=== PATIENT | male | born 1960 | race Caucasian/White ===

== ENCOUNTER 2020-11-15 01:14 | Inpatient (IN) | payer MEDICAID, SELFPAY ==
--- NOTE | 2020-11-14 23:01 | NUR.NOTE ---
Nursing Note: Report taken at this time. Tamia Velásquez RN from [facility] states she will call again when pt leaves with ems.
[2020-11-15] VITALS (52 sets, daily range): BP systolic 69–116; BP diastolic 32–85; PULSE 71–143; RESP 13–29; TEMP 35.9–36.7; O2SAT 91–98
[2020-11-15] MEDS: Lactated Ringers 1,000 ML 250 ML IV (01:30)
--- NOTE | 2020-11-15 02:24 | W.PM.HP.N ---
Date of service: 11/15/20 Time of Service: 02:24 Assessment and Plan Assessment and plan (1) Diabetic hyperosmolar non-ketotic state: Status: Acute Assessment and plan: Discontinue insulin at this point as his blood sugars have normalized but continue aggressive IV fluid hydration. Monitor blood sugars and frequent electrolytes and BUN/creatinine (2) Complicated UTI (urinary tract infection): Status: Acute Assessment and plan: Continue Rocephin 1 g IV daily and obtain urine and blood culture results. (3) Quadriplegia and quadriparesis: Status: Acute (4) Decubitus skin ulcer: Status: Acute Assessment and plan: Patient has multiple skin ulcers that are in various stages of healing. We will ask wound care nurse for consultation regarding all of his wounds. History of Present Illness History of Present Illness Chief Complaint: Elevated blood sugars Narrative: 59-year-old male with a history of multiple medical problems including quadriplegia with quadriparesis, type 2 diabetes mellitus not currently on treatment, chronic anemia, restless leg syndrome, insomnia, syringomyelia and syringobulbia, GERD, neurogenic bladder, long-term use of opiate for pain control who presents to the emergency department because of elevated fingerstick blood sugar. Patient has visiting nurse that comes once a week for his wound care and happened to check a fingerstick blood sugar and was reading high on the machine. Patient was referred to the emergency department for further evaluation. He states he has been in his usual state of health with no fever chills nausea or vomiting or diarrhea. Appetites been good. He states he has had increased thirst over the last week and drinking a lot of sodas. Patient is not currently vaccinated against Covid but has had no fever or chills or Covid exposure. He reportedly was tested at [facility] emergency room and was negative for COVID-19. Patient states that he was diagnosed with diabetes mellitus was found to have decubitus ulcer infection about a year ago and had been on Metformin until several months ago. Patient's primary care provider is Jorge L Qureshi however the patient was seen in the emergency department by Dr. Kyra Miles. He was found to have an elevated lab drawn glucose of 653 and an elevated BUN at 35 with a normal creatinine 1.0. Serum sodium was critically low at 125 but corrects to a level of 138 based on his elevated glucose. Urinalysis is abnormal with cloudy yellow urine, specific gravity 1.010, pH 7.0, moderate leukocyte esterase, negative nitrites, 4+ glucose and negative for ketones, negative for protein and greater than 100 white cells per high-powered field with many bacteria and no epithelial cells. This was taken from an indwelling Coronel catheter. Serum ketone level was obtained and found to be within normal limits at 0.4 CBC demonstrated anemia with microcytosis. Hemoglobin 9.2 g hematocrit 29% MCV of 75 with an RDW of 17 and platelet count of 3 and 71,000. His white cell count was normal at 8900. Patient was given 2 L of normal saline and was started on insulin drip at 7.5 units an hour. I received a call from Dr. Miles to accept the patient in transfer as they had no beds at [facility] in [facility] and they did already called [facility] in [place] and [facility] in [facility] and neither of those tertiary care centers had bed availability. Review of Systems Constitutional Constitutional: Denies chills and Denies fever(s) Eyes Eyes: Reports system reviewed and no additional complaints, except as documented ENT Ears, Nose, Mouth, and Throat: Reports system reviewed and no additional complaints, except as documented Cardiovascular Cardiovascular: Reports system reviewed and no additional complaints, except as documented Respiratory Respiratory: Reports system reviewed and no additional complaints, except as documented Gastrointestinal Gastrointestinal: Reports system reviewed and no additional complaints, except as documented Genitourinary Genitourinary: Reports system reviewed and no additional complaints, except as documented Musculoskeletal Musculoskeletal: Reports system reviewed and no additional complaints, except as documented Integumentary/Breasts Skin/Breast: Reports skin ulcer (Multiple skin ulcers in various stages of healing over his ankles and feet) Neurologic Neurologic: Reports sensory deficit (Patient is insensate over his arms and legs from his abdomen to waist) Endocrine Endocrine: Reports polydipsia and Reports polyuria [facility] Medical History (Updated 11/15/20 @ 03:55 by Gonzales Carey) Anemia Chronic rhinitis Diabetes mellitus type 2, controlled, without complications GERD (gastroesophageal reflux disease) Insomnia custodial current use of opiate analgesic Neurogenic bladder Obesity Pressure ulcer of sacrum Quadriplegia and quadriparesis Restless legs Syringomyelia and syringobulbia Surgical History (Updated 11/15/20 @ 03:26 by Gonzales Carey) History of drainage of abscess (~10/18/19) Necrotic decubitus ulcer of sacrum stage IV, necrotic decubitus ulcer of left posterior thigh/gluteal crease (ischial) stage IV S/P colostomy (~10/04/19) Stage IV sacral decubitus ulcers, quadriplegia Status post debridement (~08/27/20) Bilateral ingrown toenails, chronic decubitus pressure ischial and sacral ulcer stage III, crease stage IV, necrotic decubitus ulcer right posterior thigh/gluteal crease stage IV Status post debridement (~10/11/19) Necrotic decubitus ulcer of sacrum stage IV, necrotic decubitus ulcer of left posterior thigh/gluteal crease-stage IV, necrotic decubitus ulcer right posterior thigh/gluteal crease-stage IV Social History Smoking risk assessment performed?: No Meds Allergies and Home Medications Allergies Allergy/AdvReac Type Severity Reaction Status Date / Time sulfamethoxazole Allergy Severe facial Verified 11/15/20 02:45 [From Bactrim] swelling trimethoprim [From Bactrim] Allergy Severe facial Verified 11/15/20 02:45 swelling lactose Allergy Intermediate nausea and Verified 11/15/20 02:47 vomiting levofloxacin Allergy Intermediate Hives Verified 11/15/20 02:47 Home Medications Medication Instructions Recorded Confirmed Type acetaminophen 1,000 mg PO Q6H PRN 11/15/20 11/15/20 History calcium carbonate [Tums Calcium 2 tab PO TID 11/15/20 11/15/20 History for Life Bone] cholecalciferol (vitamin D3) 25 mcg PO DAILY 11/15/20 11/15/20 History docusate sodium [Colace] 200 mg PO DAILY PRN 11/15/20 11/15/20 History fentanyl 1 patch TRANSDERMAL Q72H 11/15/20 11/15/20 History ferrous sulfate 325 mg PO BID 11/15/20 11/15/20 History fluconazole 300 mg PO QWEEK 11/15/20 11/15/20 History fluticasone propionate 2 spray INTRANASAL DAILY 11/15/20 11/15/20 History food supplemt, lactose-reduced ml 11/15/20 History [Ensure High Protein] furosemide 20 mg PO BID 11/15/20 11/15/20 History gabapentin 300 mg PO TID 11/15/20 11/15/20 History ibuprofen [Ibumed-600] 600 mg PO Q6H PRN 11/15/20 11/15/20 History lorazepam 0.5 mg PO HS 11/15/20 11/15/20 History magnesium oxide 400 mg PO BID 11/15/20 11/15/20 History multivitamin [TAB A ANDREW] 1 tab PO DAILY 11/15/20 11/15/20 History naloxone [Narcan] 1 spray INTRANASAL PRN PRN 11/15/20 11/15/20 History nystatin [Nystop] 1 applic TOPICAL BID 11/15/20 11/15/20 History ondansetron 8 mg TRANSLINGUAL Q8H PRN 11/15/20 11/15/20 History oxycodone-acetaminophen 2 tab PO TID PRN 11/15/20 11/15/20 History pantoprazole 40 mg PO DAILY 11/15/20 11/15/20 History polyethylene glycol 3350 [Miralax] 17 g PO DAILY 11/15/20 11/15/20 History pramipexole 0.25 mg PO HS 11/15/20 11/15/20 History pramipexole 0.5 mg PO HS 11/15/20 11/15/20 History sennosides 34.4 mg PO DAILY PRN 11/15/20 11/15/20 History Exam Const General: cooperative and ill appearing Nutritional Appearance: overweight Orientation: alert, awake and oriented x3 HENCT Head: normal to inspection, no palpable skull fracture and normocephalic Ears: hearing grossly normal bilaterally General nose exam: external nose normal Face and sinus: normal facial exam Mouth: oral mucosa abnormal other (Dry) Teeth and gingiva: poor dentition Eyes General: appearance normal, both eyes and all related structures Visual Ceballos: normal visual ceballos by confrontation Alignment and Position: alignment normal Periorbital: periorbital findings normal Eyelids: eyelids normal Conjunctivae: conjunctivae normal Sclera: sclerae normal Cornea: corneas normal Pupils: PERRL EOM: EOM intact bilaterally Neck Neck: normal visual inspection, full ROM, no lymphadenopathy, no meningeal signs, trachea midline and supple Thyroid: thyroid normal Carotids: normal carotid upstroke Lymphatic: no lymphadenopathy noted Resp Effort & Inspection: normal respiratory effort and able to speak in complete sentences Auscultation: clear to auscultation bilaterally Cardio Jugular venous pressure: no JVD Palpation: normal PMI Rate: regular rate Rhythm: regular rhythm Heart Sounds: S1 normal, S2 normal and normal, physiologic split S2 Pulses: posterior tibial pulses present bilaterally diminished and dorsalis pedis present bilaterally diminished GI Inspection: non-distended, scar and other (Colostomy in right lower quadrant with light brown stool, pink stoma) Palpation: soft and no hepatosplenomegaly Percussion: normal to percussion Auscultation: normal bowel sounds Male General Exam: Yes normal external exam Penis: normal penis and other (Indwelling Coronel catheter) Back/Spine/Pelvis Back: no CVA tenderness Cervical Spine: normal cervical lordosis Thoracic/Lumbar Spine: scoliosis Skin Wounds: wounds noted (Both ankles and both heels have Mepilex covering his wounds) Neuro General: patient alert, patient awake, patient oriented x3 and absent sensation to monofilament Cognition: normal cognition Speech: speech normal Motor: muscle tone abnormal and strength abnormal bilateral lower extremity Results Labs Result diagrams: 11/15/20 05:35 11/15/20 05:35
[2020-11-15 03:45] LABS: BE (Venous) 6 mmol/L (-2-3); HCO3 (Venous) 31 mmol/L (23-28); O2 Sat (Venous) 71 %; TCO2 (Venous) 30 mmol/L (24-29); pCO2 (Venous) 52 mmHg (41-51); pH (Venous) 7.38 (7.31-7.41); pO2 (Venous) 37 mmHg
[2020-11-15 03:55] LABS: Anion Gap 2.7 mmol/L (3-11); BUN 29 mg/dL (7-18); CO2 31.3 mmol/L (21.0-32.0); CREATININE 0.8 mg/dL (0.70-1.30); Calcium 8.5 mg/dL (8.5-10.1); Chloride 100 mmol/L (98-107); Glucose 153 mg/dL (74-106); Potassium 4.1 mmol/L (3.5-5.1); Sodium 134 mmol/L (136-145)
[2020-11-15] MEDS: cefTRIAXone 1,000 MG in Normal Saline 50 ML 100 MG IVPB (04:06)
[2020-11-15] MEDS: Normal Saline 500 ML IV (04:40)
[2020-11-15 07:04] LABS: Lactate 1.4 mmol/L (0.6-1.4)
[2020-11-15 07:11] LABS: Bilirubin Negative (Negative); Blood Small (Negative); Clarity Cloudy (Clear); Glucose Negative (Negative); Ketones Negative (Negative); Leukocyte Esterase Moderate (Negative); Nitrite Positive (Negative); Specific Gravity 1.015 (1.005-1.025); Urobilinogen 0.2 EU/dL (Up TO 0.2); pH 6.5 (5-8)
[2020-11-15 07:11] LABS: Abs Immature Grans 0.07 10^3/uL (0.0-0.06); Absolute Basophil Count 0.04 10^3/uL (0.0-0.2); Absolute Eosinophil Count 0.41 10^3/uL (0.0-0.7); Absolute Lymphocyte Count 1.98 10^3/uL (1.2-3.4); Absolute Monocyte Count 0.45 10^3/uL (0.1-0.8); Basophils % 0.3; Eosinophils % 3.2; HCT 23.1 % (40.0-50.0); HGB 7.1 g/dL (13.5-17.5); Immature Grans % 0.5; Lymphocytes % 15.5; MCH 23.2 pg (27.0-33.0); MCHC 30.7 % (32.0-36.0); MCV 75.5 fL (80-95); Monocytes % 3.5; Nucleated RBC 0 %; Platelet Count 338 10^3/uL (130-400); RBC 3.06 10^6/uL (4.36-5.78); RDW 16.5 % (11.8-14.1); RDW-SD 45.1 fL; WBC 12.77 10^3/uL (4.4-10.8)
[2020-11-15 07:13] LABS: Absolute Neutrophil Count 9.83 10^3/uL (1.2-6.7)
[2020-11-15 07:20] LABS: Bacteria Many HPF (Negative); C & S Indicated? Yes; Casts Negative LPF (Negative); Crystals Negative HPF (Negative); Epithelial Cells Negative HPF (Negative); Mucus Negative (Negative); WBC >50 HPF (0-5)
[2020-11-15] MEDS: Normal Saline 500 ML 1000 ML IV (07:20)
[2020-11-15 07:34] LABS: Hemoglobin A1C 9.9 % (<5.7)
[2020-11-15 07:35] LABS: Anisocytosis 1+; Diff Comment RBC Morph Reviewed
[2020-11-15 07:38] LABS: ALT 7 U/L (16-63); AST 9 U/L (15-37); Albumin 1.6 g/dL (3.4-5.0); Alkaline Phosphatase 126 U/L (46-116); BUN 24 mg/dL (7-18); Bilirubin, Total 0.1 mg/dL (0.2-1.0); CREATININE 0.7 mg/dL (0.70-1.30); Calcium 8.2 mg/dL (8.5-10.1); Chloride 102 mmol/L (98-107); Glucose 154 mg/dL (74-106); Potassium 4.1 mmol/L (3.5-5.1); Sodium 135 mmol/L (136-145); TSH 2.42 uIU/mL (0.36-3.74); Total Protein 6.9 g/dL (6.4-8.2)
[2020-11-15 07:51] LABS: Procalcitonin 0.2 ng/mL
[2020-11-15] MEDS: Enoxaparin 40 MG/0.4 ML SYR SC (08:52)
[2020-11-15] MEDS: Insulin Aspart 300 UNITS/3 ML PEN SC ×6 (08:53→17:40)
[2020-11-15] MEDS: Gabapentin 300 MG CAP PO ×3 (08:59→20:02)
[2020-11-15] MEDS: Nystatin POWDER 60 GM JAR TP ×2 (08:59→21:24)
[2020-11-15] MEDS: Multivitamin TAB 1 TAB PO (08:59)
[2020-11-15] MEDS: Furosemide 20 MG TAB PO ×2 (08:59→16:38)
[2020-11-15] MEDS: Magnesium Oxide 400 MG TAB PO ×2 (08:59→20:02)
[2020-11-15] MEDS: Pantoprazole 40 MG TABCR PO (09:00)
[2020-11-15] MEDS: Ferrous Sulfate 325 MG TAB PO ×2 (09:00→20:00)
[2020-11-15] MEDS: Fluticasone NASAL SPRAY 16 GM BTL NS (09:00)
[2020-11-15] MEDS: Cholecalciferol (Vitamin D3) 1,000 UNIT TAB 1000 UNITS PO (09:00)
[2020-11-15] MEDS: Polyethylene Glycol 3350 17 GM PACKET PO (09:01)
[2020-11-15 11:12] LABS: Magnesium 1.5 mg/dL (1.8-2.4)
--- NOTE | 2020-11-15 11:17 | W.SURGCON ---
Assessment and Plan Assessment and plan (1) Decubitus skin ulcer: Status: Acute Assessment and plan: -Continue aggressive local wound care per wound care notes, keep areas as clean and dry as possible -Wound recommend Santyl over distal sacrum and any areas with visible slough or necrotic tissue -Offloading q2 hours and air mattress if available -Nutritionally optimize to aid in wound healing Qualifiers: Pressure injury location: sacral region Pressure injury stage: stage 4 Qualified Code(s): L89.154 - Pressure ulcer of sacral region, stage 4 (2) Complicated UTI (urinary tract infection): Status: Acute (3) Diabetic hyperosmolar non-ketotic state: Status: Acute (4) S/P colostomy: Status: Acute (5) senior care current use of opiate analgesic: Status: Acute (6) Neurogenic bladder: Status: Acute (7) Quadriplegia and quadriparesis: Status: Acute (8) Syringomyelia and syringobulbia: Status: Acute (9) Anemia: Status: Chronic Qualifiers: Anemia type: unspecified type Qualified Code(s): D64.9 - Anemia, unspecified History of Present Illness Narrative: Patient is a 59 year old male with multiple medical comorbidities including HHNS for which he was transferred here from [facility] overnight who has chronic wounds as a result of his quadriplegia. The wounds have been cared for several times per week by [facility] services. He has undergone multiple debridements in the past at [facility] and would like to avoid further surgery if possible. His wounds appear to be macerated from moisture likely exacerbated by the use of saline soaked dressings. He uses an air mattress while at home. He denies any fever, chills, nausea or vomiting and claims his symptoms of dizziness and malaise have resolved.He admits to pounding sodas which did not actually help with his polydipsia and he stopped having his blood glucose checked since it was always in the low 100's. He understands the significant risks associated with wound infections in patient's with diabetes, which is a new diagnosis for him. He was seen by wound care here who have nicely documented pictures and measurements of all of the patient's wounds. As a result of his wounds I was asked to see the patient in consultation. Consults Consult date: 11/15/20 Requesting physician: Swapnil Bender Review of Systems Constitutional Constitutional: Reports as per HPI, Reports fatigue, Denies fever(s) and Reports malaise Eyes Eyes: Reports blurry vision ENT Ears, Nose, Mouth, and Throat: Reports dizziness Cardiovascular Cardiovascular: Denies dyspnea Respiratory Respiratory: Denies dyspnea and Denies wheezing Gastrointestinal Gastrointestinal: Denies abdominal pain, Denies diarrhea, Denies nausea and Denies vomiting Integumentary/Breasts Skin/Breast: Reports wounds Neurologic Neurologic: Reports dizziness Endocrine Endocrine: Reports fatigue Allergic/Immunologic Allergic/Immunologic: Denies wheezing [facility] Medical History (Updated 11/15/20 @ 14:10 by Stephanie Gordon DO) Anemia Chronic rhinitis Diabetes mellitus type 2, controlled, without complications GERD (gastroesophageal reflux disease) Insomnia senior care current use of opiate analgesic Neurogenic bladder Obesity Pressure ulcer of sacrum Quadriplegia and quadriparesis Restless legs Syringomyelia and syringobulbia Surgical History (Updated 11/15/20 @ 03:26 by Gonzales Carey) History of drainage of abscess (~10/18/19) Necrotic decubitus ulcer of sacrum stage IV, necrotic decubitus ulcer of left posterior thigh/gluteal crease (ischial) stage IV S/P colostomy (~10/04/19) Stage IV sacral decubitus ulcers, quadriplegia Status post debridement (~08/27/20) Bilateral ingrown toenails, chronic decubitus pressure ischial and sacral ulcer stage III, crease stage IV, necrotic decubitus ulcer right posterior thigh/gluteal crease stage IV Status post debridement (~10/11/19) Necrotic decubitus ulcer of sacrum stage IV, necrotic decubitus ulcer of left posterior thigh/gluteal crease-stage IV, necrotic decubitus ulcer right posterior thigh/gluteal crease-stage IV Social History Smoking risk assessment performed?: No Exam Const General: cooperative and no acute distress HENMT Teeth and gingiva: caries and poor dentition Resp Effort & Inspection: normal respiratory effort and no audible wheezes Cardio Rate: regular rate Rhythm: regular rhythm GI Inspection: other (colostomy) Palpation: soft and nontender Scrotum: ulceration Other: chronic gray Skin General skin exam: erythema Wounds: wounds noted (multiple areas of decubitus ulcers with significant MASD) Neuro General: patient alert, patient awake, patient oriented x3, tone abnormal, does not move all extremities and other (quadriplegia with upper extremity conractures) Extrem Right lower extremity: edema Details: 1+ Left lower extremity: edema Details: 1+ Results Last Vital Signs Temp 97.0 F L 11/15/20 05:00 Pulse 91 H 11/15/20 05:01 Resp 20 11/15/20 05:01 BP 87/52 L 11/15/20 05:01 Pulse Ox 98 11/15/20 05:01 Labs Result diagrams: 11/15/20 06:50 11/15/20 06:50 Labs: Laboratory Results - last 24 hr 11/15/20 11/15/20 11/15/20 03:35 03:35 06:30 WBC RBC Hgb Hct MCV MCH MCHC RDW Plt Count MPV Immature Gran % Neutrophils % Lymphocytes % Monocytes % Eosinophils % Basophils % Nucleated RBC % Absolute Neutrophils Absolute Lymphocytes Absolute Monocytes Absolute Eosinophils Absolute Basophils RBC Morphology Anisocytosis VBG pH 7.38 VBG pCO2 52 H VBG pO2 37 VBG HCO3 31 H VBG Total CO2 30 H VBG O2 Saturation 71 VBG Base Excess 6 H VBG Lactate Sodium 134 L Potassium 4.1 Chloride 100 Carbon Dioxide 31.3 Anion Gap 2.7 L BUN 29 H Creatinine 0.8 Estimated GFR/1.73 m2 >= 60.00 Glucose 153 H Hemoglobin A1c Calcium 8.5 Total Bilirubin AST ALT Alkaline Phosphatase C-Reactive Protein Total Protein Albumin Procalcitonin TSH Urine Color Yellow Urine Clarity Cloudy Urine pH 6.5 Ur Specific [place] 1.015 Urine Protein 30 H Urine Ketones Negative Urine Blood Small H Urine Nitrite Positive H Urine Bilirubin Negative Urine Urobilinogen 0.2 Ur Leukocyte Esterase Moderate H Urine RBC Urine WBC >50 H Ur Epithelial Cells Negative Urine Crystals Negative Urine Bacteria Many Urine Casts Negative Urine Mucus Negative Ur Culture Indicated? Yes Urine Glucose Negative 11/15/20 11/15/20 11/15/20 06:50 06:50 06:50 WBC 12.77 H RBC 3.06 L Hgb 7.1 L Hct 23.1 L MCV 75.5 L MCH 23.2 L MCHC 30.7 L RDW 16.5 H Plt Count 338 MPV 9.0 Immature Gran % 0.5 Neutrophils % 77.0 Lymphocytes % 15.5 Monocytes % 3.5 Eosinophils % 3.2 Basophils % 0.3 Nucleated RBC % 0 Absolute Neutrophils 9.83 H Absolute Lymphocytes 1.98 Absolute Monocytes 0.45 Absolute Eosinophils 0.41 Absolute Basophils 0.04 RBC Morphology See Below Anisocytosis 1+ VBG pH VBG pCO2 VBG pO2 VBG HCO3 VBG Total CO2 VBG O2 Saturation VBG Base Excess VBG Lactate Sodium 135 L Potassium 4.1 Chloride 102 Carbon Dioxide 28.0 Anion Gap 5.0 BUN 24 H Creatinine 0.7 Estimated GFR/1.73 m2 >= 60.00 Glucose 154 H Hemoglobin A1c 9.9 H Calcium 8.2 L Total Bilirubin 0.1 L AST 9 L ALT 7 L Alkaline Phosphatase 126 H C-Reactive Protein 5.70 H Total Protein 6.9 Albumin 1.6 L Procalcitonin TSH 2.42 Urine Color Urine Clarity Urine pH Ur Specific [place] Urine Protein Urine Ketones Urine Blood Urine Nitrite Urine Bilirubin Urine Urobilinogen Ur Leukocyte Esterase Urine RBC Urine WBC Ur Epithelial Cells Urine Crystals Urine Bacteria Urine Casts Urine Mucus Ur Culture Indicated? Urine Glucose 11/15/20 06:50 WBC RBC Hgb Hct MCV MCH MCHC RDW Plt Count MPV Immature Gran % Neutrophils % Lymphocytes % Monocytes % Eosinophils % Basophils % Nucleated RBC % Absolute Neutrophils Absolute Lymphocytes Absolute Monocytes Absolute Eosinophils Absolute Basophils RBC Morphology Anisocytosis VBG pH VBG pCO2 VBG pO2 VBG HCO3 VBG Total CO2 VBG O2 Saturation VBG Base Excess VBG Lactate 1.4 Sodium Potassium Chloride Carbon Dioxide Anion Gap BUN Creatinine Estimated GFR/1.73 m2 Glucose Hemoglobin A1c Calcium Total Bilirubin AST ALT Alkaline Phosphatase C-Reactive Protein Total Protein Albumin Procalcitonin 0.2 TSH Urine Color Urine Clarity Urine pH Ur Specific [place] Urine Protein Urine Ketones Urine Blood Urine Nitrite Urine Bilirubin Urine Urobilinogen Ur Leukocyte Esterase Urine RBC Urine WBC Ur Epithelial Cells Urine Crystals Urine Bacteria Urine Casts Urine Mucus Ur Culture Indicated? Urine Glucose
[2020-11-15] MEDS: Calcium Carbonate 1.5 GM TAB 3 GM PO ×3 (11:30→20:01)
--- NOTE | 2020-11-15 11:53 | WOUNDCONS_ITS ---
- If Service Date Differs Date of service: 11/15/20 Time of Service: 09:50 Wound Initial Evaluation Narrative: Pt had consult placed for multiple open areas/ wounds. Pt is alert and oriented x 3. Spoke with Danielle at [facility] who stated that he has been seen for his wounds through home health since 2018 and has a caregiver who comes in along with nursing 5-7 days/ week, wound orders as stated from home health are to pack open wounds with exufiber or saline soaked kerlix, cover with ABD and tape, change daily and PRN for outer covering, also noted in report that pt declines to follow repositioning guidelines. Pt came in 11/14/20 as a transfer from [facility] in [place] for COUNTS INCLUDE 234 BEDS AT THE [facility] (see H and P for details). Pt had SBP in 70-80's on the night of 11/14- morning 11/15 but now has a blood pressure around 110's/70's. Pt afebrile at time of assessment. D/t contractures, pt unable to sign and gives verbal consent for photos and wound assessment. Wound on left heel appears to be DTI measuring 2.5 cm x 2.5 cm x 0. Pt states he has had this injury awhile. No open areas noted. Recommend mepilex over area for protection, change q 3 days and PRN and offloading heel. Right lateral malleolus open area pt states is from pressure. Open area measures 0.3 cm x 0.3 cm x 0.1 cm. Recommend cleansing area with ns, pat dry, apply mepilex q 3 days and PRN and offloading the area. Right abdominal fold open areas (2 areas measured as one) measures 1 cm x 1.5 cm x 0.2 cm. Area could be a moisture associated injury. Recommend cleaning area, pat dry, apply triple cream (A and D, ZInc and clotrimazole in equal parts) TID and PRN. Monitor for s/sx of infection and report to MD. Mary area and groin has areas of redness with irritation consistant with moisture associated injury with fungal component. Recommend cleaning area, pat dry, apply triple cream TID and PRN. Monitor for s/sx of infection and report to MD. Scrotum has open area measuring 3.5 x 1 x 0.2 ?etiology. Scrotum itself is reddened with other areas of potential breakdown noted. Right ischial tuberosity- ? etiology, probable pressure area. Reddened area measures 12 cm x 9.5 cm x 0.1 cm with area of maceration near concave area noted. Redness is blanchable, no induration noted. Sacral area open wound noted to be a stage 4 in previous documentation. Currently wound measures 6.5 cm x 5 cm x 1.8 cm. Tunnel noted at 8 o'clock measuring 1.1 cm and undermining noted from 3-5 cm measuring 1.5 cm at deepest part. Slit noted at 6 o'clock measuring 3.5 cm. Attempted to measure depth of slit, but unable d/t pt discomfort and pt request to stop. Dressing removed had moderate amount of purluent drainage Recommend cleanse with ns, pat dry, apply algisite to larger open area, apply layer of anasept gel to smaller slough covered area, cover with mepilex. Change daily and PRN. Left posterior thigh necrotic area measures 4 cm x 1 cm x 0.2 cm. Recommend cleansing wound with saline, pat dry, apply skin prep to periphery, anasept gel to base of wound and cover with mepilex. Change daily and PRN. General posterior buttocks/ thigh area- Appears to have MASD as well as significant edema. Clean area, pat dry, apply triple cream TID and PRN. See pictures below for wound appearences. notified and Dr. Bender in to see wounds. Spoke to patient and staff about need for offloading and repositioning and offloading boots. Pt has order to change catheter and hopefully catheter change will help with any leaking around site, although it is a chronic catheter.Pt would benefit from surgical consult and nutrition consult. - Wound Left heel Wound Length: 2.5 cm Wound Width: 2.5 cm Wound Depth: 0.1 cm Right lateral malleolus Wound Length: 0.3 cm Wound Width: 0.3 cm Wound Depth: 0.1 cm Right abd fold Wound Length: 1 cm Wound Width: 1.5 cm Wound Depth: 0.2 cm Scrotum Wound Length: 3.5 cm Wound Width: 1 cm Wound Depth: 0.2 cm Right ischial tuberosity Wound Length: 12 cm Wound Width: 9.5 cm Wound Depth: 0.1 cm Sacral area Wound Length: 6.5 cm Wound Width: 5 cm Wound Depth: 1.8 cm Left posterior thigh Wound Length: 4 cm Wound Width: 1 cm Wound Depth: 0.2 cm - Recomendation Recomendation:: Left heel- Skin prep around area, cover with mepilex, change q 3 days and PRN Right lateral malleolus- Cleanse with ns, pat dry, apply mepilex. Change q 3 days an PRN Right abd fold and mary area/ groin- Cleanse area, pat dry. Apply triple cream (A and D, clotrimazole and zinc) to area TID and PRN Scrotum- Cleanse, pat dry and apply triple cream TID and PRN. R ischial tuberosity- Cleanse area, pat dry, apply triple cream TID and PRN. Sacrum- Cleanse with ns, pat dry, apply algisite and cover with mepilex. Change daily and PRN. For smaller slough area adjacent to larger area, cleanse with ns, apt dry, apply anasept gel, cover with mepilex- follow surgical recommendations after consult. Left posterior thigh- CLeanse with ns, pat dry, apply anasept gel. Cover with mepilex. Follow Surgical recommendations after consult. General MASD on posterior buttocks/ thighs- cleanse, pat dry, apply triple cream TID and PRN. Recommend :Surgical consult for slough/ necrotic areas on posterior. Nutrition consult for wound healing. Arjo bed for pt if here longer than three days. Turn q 2 and PRN as pt is high risk for further pressure injuries. Offloading boots. Due to chronicity of wounds r/o osteomyelitis.
--- NOTE | 2020-11-15 13:15 | PDOC.CMIN ---
- If Service Date Differs Date of service: 11/15/20 Time of Service: 13:16 Care Management Initial Assess REASON FOR HOSPITALIZATION:: Hyperosmolar Nonketotic Hyperglycemia PAST MEDICAL HISTORY/PAST SURGICAL HISTORY:: Medical History (Updated 11/15/20 @ 03:55 by Gonzales Carey). Anemia. Chronic rhinitis. Diabetes mellitus type 2, controlled, without complications. GERD (gastroesophageal reflux disease). Insomnia. 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 Neurogenic bladder. Obesity. Pressure ulcer of sacrum. Quadriplegia and quadriparesis. Restless legs. Syringomyelia and syringobulbia. Surgical History (Updated 11/15/20 @ 03:26 by Gonzales Carey). History of drainage of abscess (~10/18/19). Necrotic decubitus ulcer of sacrum stage IV, necrotic decubitus ulcer of left posterior thigh/gluteal crease (ischial) stage IV. S/P colostomy (~10/04/19). Stage IV sacral decubitus ulcers, quadriplegia. Status post debridement (~08/27/20). 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 Status post debridement (~10/11/19). Necrotic decubitus ulcer of sacrum stage IV, necrotic decubitus ulcer of left posterior thigh/gluteal crease-stage IV, necrotic decubitus ulcer right posterior thigh/gluteal crease-stage IV PREVIOUS FUNCTIONAL STATUS/SOCIAL/FAMILY SUPPORTS:: Jose lives alone in [place]. His brother Harvey from [place] has been staying with him prior to his admission. Jose's son and daughter in law are supportive and live nearby on the same parcel of land. Jose has a scooter at home and transfers with a mariela lift. He is home bound and transports via EMS when needed. He has [facility] SN[facility]PT services and receives daily care for a large sacral wound. CURRENT FUNCTIONAL STATUS:: Jose was laying in bed when CM met with him. He was pleasant and easily engaged in conversation. He shares that he is feeling better today. He has a phone in his room and reports that he is keeping his family updated and planning on calling his brother later today. ADVANCE DIRECTIVES:: None on file Has patient been provided with info about the portal/API?: Yes Did the patient sign up for the portal?: No CODE STATUS:: Full Code INSURANCE COVERAGE / FINANCIAL ISSUES:: Medicaid CURRENT HOME/COMMUNITY SERVICES/EQUIPMENT:: [facility]: SN/PT, [employer] (at home), has a scooter. PRIMARY CARE PHYSICIAN:: Dr. Guaman, [facility] POTENTIAL DISCHARGE NEEDS:: EMS transportation, SNF for wound care PATIENT/FAMILY EDUCATION NEEDS:: Review of discharge instructions and plan to follow up with community providers. ask me three. TRANSPORTATION:: Transportation is dependent on disposition: Home vs SNF for rehab via EMS PLAN:: Further evaluations needed to determine discharge plan. CM will continue to support discharge planning.
[2020-11-15] MEDS: Lactated Ringers 1,000 ML 50 ML IV (14:55)
[2020-11-15] MEDS: MAGNESIUM SULFATE 2 GM/50 ML BAG IVPB (14:56)
[2020-11-15] MEDS: Ibuprofen 600 MG TAB PO (20:01)
[2020-11-15] MEDS: Docusate Sodium 100 MG CAP PO (20:02)
[2020-11-15] MEDS: Insulin Glargine 300 UNITS/3 ML PEN 10 UNITS SC (21:20)
[2020-11-15] MEDS: Pramipexole 0.25 MG TAB PO (21:22)
[2020-11-15] MEDS: LORazepam 0.5 MG TAB PO (21:22)
[2020-11-15] MEDS: Pramipexole 0.5 MG TAB PO (21:22)
--- NOTE | 2020-11-15 22:24 | NUR.NOTE ---
Pt with indwelling catheter foreskin noted to be retracted unable to replace foreskin secondary to edema and irritation. Surgilube applied to glans.Nursing Note:
[2020-11-16] VITALS (81 sets, daily range): BP systolic 54–112; BP diastolic 25–71; PULSE 60–115; RESP 9–24; TEMP 35.5–37.5; O2SAT 84–98
[2020-11-16] MEDS: oxyCODONE 5 mg/Acetaminophen 325 mg TAB 2 TAB PO ×3 (00:08→20:38)
[2020-11-16] MEDS: Lactated Ringers 1,000 ML 50 ML IV ×3 (00:30→21:46)
[2020-11-16] MEDS: cefTRIAXone 1 GM/50 ML BAG IVPB (04:23)
[2020-11-16] MEDS: Lactated Ringers 500 ML 1000 ML IV (05:20)
--- NOTE | 2020-11-16 05:47 | NUR.NOTE ---
2347 on 11/15-Dr. Mullen in to assess gray. He thought that foreskin was able to be retracted and pt would not need any more ice to the site.
[2020-11-16 06:31] LABS: Lactate 0.8 mmol/L (0.6-1.4)
[2020-11-16 06:33] LABS: Abs Immature Grans 0.05 10^3/uL (0.0-0.06); Absolute Basophil Count 0.02 10^3/uL (0.0-0.2); Absolute Lymphocyte Count 2.34 10^3/uL (1.2-3.4); Absolute Neutrophil Count 5.15 10^3/uL (1.2-6.7); Basophils % 0.2; Eosinophils % 2.4; HCT 22.2 % (40.0-50.0); Immature Grans % 0.6; Lymphocytes % 28.3; MCH 23.9 pg (27.0-33.0); MCHC 31.1 % (32.0-36.0); MCV 76.8 fL (80-95); MPV 8.8 fL (8.0-11.0); Monocytes % 6.1; Neutrophils % 62.4; Nucleated RBC 0 %; Platelet Count 312 10^3/uL (130-400); RBC 2.89 10^6/uL (4.36-5.78); RDW-SD 47.4 fL; WBC 8.26 10^3/uL (4.4-10.8)
[2020-11-16 06:37] LABS: HGB 6.9 g/dL (13.5-17.5)
[2020-11-16 06:45] LABS: Anion Gap 2.6 mmol/L (3-11); BUN 18 mg/dL (7-18); CO2 32.4 mmol/L (21.0-32.0); CREATININE 0.9 mg/dL (0.70-1.30); Calcium 8.3 mg/dL (8.5-10.1); Chloride 102 mmol/L (98-107); Glucose 225 mg/dL (74-106); Potassium 4.1 mmol/L (3.5-5.1); Sodium 137 mmol/L (136-145)
--- NOTE | 2020-11-16 06:46 | PGE_ITS ---
Date of Service Date of service: 11/16/20 Time of Service: 06:47 Assessment and Plan Assessment and plan (1) Hypotension: Status: Acute Assessment and plan: Patient's blood pressure runs low chronically with SBP in 90s, but we are seeing lower numbers overnight. Obvious concern in the setting of sacral ulcer and elevated WBC and CRP is bacteremia and sepsis. Given this, I will dose with vancomycin to his ceftriaxone as we continue the assessment, add lactate to labs. That said, he is not septic clinically. I repeated BP with left arm that was positioned more in line with the heart, I did get in the 80s systolic. His urine output is excellent which reflects good perfusion. WBC just returned and is normal with normal differential He is also critically anemia, will give blood rather than another bolus after discussion with patient and consent. Case will be discussed with day hospitalist within the hour to prioritize ongoing assessment. (2) Anemia: Status: Chronic Assessment and plan: I am not sure of the etiology of his severe anemia, but he is now below 7 so will transfuse. The drop was minimal from 7.1 yesterday with hydration, and he is not reporting active bleed. His nutrutional status is poor so iron/b12/folate levels should be assessed. Likely iron deficient with microcytosis, he may benefit from IV iron. Qualifiers: Anemia type: unspecified type Qualified Code(s): D64.9 - Anemia, unspecified Subjective Subjective Interval history since last seen: ICU update: RN called 4am, blood pressures trending down to 79/36. He had responded to 500ml bolus of LR in the evening. This was repeated but blood pressures stayed i n 70s/40s. I assessed the patient. He denied fevers/chills. not dizzy, nauseous, SOB. He is hungry. No new pain. He feels fine. Exam Narrative Exam Narrative: A&O, NAD in bed on left side, BP cuff on right arm. No elevation JVP, neck supple. Lungs clear to ascultation, nl effort. CV: RRR, no murmur, gallups. EXT: Contracted, 2+ edema to lower legs. Objective Last Vital Signs Temp 36.2 C L 11/16/20 06:35 Pulse 89 11/16/20 04:41 Resp 18 11/16/20 05:00 BP 85/64 L 11/16/20 06:35 Pulse Ox 93 11/16/20 05:00 Laboratory Results - last 24 hr 11/15/20 11/15/20 11/15/20 06:30 06:50 06:50 WBC 12.77 H RBC 3.06 L Hgb 7.1 L Hct 23.1 L MCV 75.5 L MCH 23.2 L MCHC 30.7 L RDW 16.5 H Plt Count 338 MPV 9.0 Immature Gran % 0.5 Neutrophils % 77.0 Lymphocytes % 15.5 Monocytes % 3.5 Eosinophils % 3.2 Basophils % 0.3 Nucleated RBC % 0 Absolute Neutrophils 9.83 H Absolute Lymphocytes 1.98 Absolute Monocytes 0.45 Absolute Eosinophils 0.41 Absolute Basophils 0.04 RBC Morphology See Below Anisocytosis 1+ VBG Lactate Sodium 135 L Potassium 4.1 Chloride 102 Carbon Dioxide 28.0 Anion Gap 5.0 BUN 24 H Creatinine 0.7 Estimated GFR/1.73 m2 >= 60.00 Glucose 154 H Hemoglobin A1c Calcium 8.2 L Magnesium Total Bilirubin 0.1 L AST 9 L ALT 7 L Alkaline Phosphatase 126 H C-Reactive Protein 5.70 H Total Protein 6.9 Albumin 1.6 L Procalcitonin TSH 2.42 Urine Color Yellow Urine Clarity Cloudy Urine pH 6.5 Ur Specific [place] 1.015 Urine Protein 30 H Urine Ketones Negative Urine Blood Small H Urine Nitrite Positive H Urine Bilirubin Negative Urine Urobilinogen 0.2 Ur Leukocyte Esterase Moderate H Urine RBC Urine WBC >50 H Ur Epithelial Cells Negative Urine Crystals Negative Urine Bacteria Many Urine Casts Negative Urine Mucus Negative Ur Culture Indicated? Yes Urine Glucose Negative Crossmatch 11/15/20 11/15/20 11/15/20 06:50 06:50 06:50 WBC RBC Hgb Hct MCV MCH MCHC RDW Plt Count MPV Immature Gran % Neutrophils % Lymphocytes % Monocytes % Eosinophils % Basophils % Nucleated RBC % Absolute Neutrophils Absolute Lymphocytes Absolute Monocytes Absolute Eosinophils Absolute Basophils RBC Morphology Anisocytosis VBG Lactate 1.4 Sodium Potassium Chloride Carbon Dioxide Anion Gap BUN Creatinine Estimated GFR/1.73 m2 Glucose Hemoglobin A1c 9.9 H Calcium Magnesium 1.5 L Total Bilirubin AST ALT Alkaline Phosphatase C-Reactive Protein Total Protein Albumin Procalcitonin 0.2 TSH Urine Color Urine Clarity Urine pH Ur Specific [place] Urine Protein Urine Ketones Urine Blood Urine Nitrite Urine Bilirubin Urine Urobilinogen Ur Leukocyte Esterase Urine RBC Urine WBC Ur Epithelial Cells Urine Crystals Urine Bacteria Urine Casts Urine Mucus Ur Culture Indicated? Urine Glucose Crossmatch 11/16/20 11/16/20 11/16/20 06:15 06:15 06:40 WBC 8.26 D RBC 2.89 L Hgb 6.9 L* Hct 22.2 L MCV 76.8 L MCH 23.9 L MCHC 31.1 L RDW 17.0 H Plt Count 312 MPV 8.8 Immature Gran % 0.6 Neutrophils % 62.4 Lymphocytes % 28.3 Monocytes % 6.1 Eosinophils % 2.4 Basophils % 0.2 Nucleated RBC % 0 Absolute Neutrophils 5.15 Absolute Lymphocytes 2.34 Absolute Monocytes 0.50 Absolute Eosinophils 0.20 Absolute Basophils 0.02 RBC Morphology Anisocytosis VBG Lactate 0.8 Sodium Potassium Chloride Carbon Dioxide Anion Gap BUN Creatinine Estimated GFR/1.73 m2 Glucose Hemoglobin A1c Calcium Magnesium Total Bilirubin AST ALT Alkaline Phosphatase C-Reactive Protein Total Protein Albumin Procalcitonin TSH Urine Color Urine Clarity Urine pH Ur Specific [place] Urine Protein Urine Ketones Urine Blood Urine Nitrite Urine Bilirubin Urine Urobilinogen Ur Leukocyte Esterase Urine RBC Urine WBC Ur Epithelial Cells Urine Crystals Urine Bacteria Urine Casts Urine Mucus Ur Culture Indicated? Urine Glucose Crossmatch See Detail
[2020-11-16 06:48] LABS: Magnesium 1.8 mg/dL (1.8-2.4)
--- NOTE | 2020-11-16 07:16 | NUR.NOTE ---
0445-Dr. Mullen called about BP of 74/42. bolus of LR ordered. 0600-BP now 76/44 and 69/[address] Mullen called again and stated he would be coming in to assess pt. labs were drawn and when Dr. Mullen here to assess pt, lab called with a critical value for Hg of 6.9. Reported to Dr. Mullen who ordered type and cross and transfusion.
[2020-11-16 08:23] LABS: Iron 42 ug/dL (65-175); Total Iron Binding Capacity 146 ug/dL (250-450); Transferrin Sat 29 % (20-55)
[2020-11-16 08:25] LABS: Folate > 20.0 ng/mL (8.6-20.0); Vitamin B12 947 pg/mL (193-986)
[2020-11-16] MEDS: Enoxaparin 40 MG/0.4 ML SYR SC (08:40)
[2020-11-16] MEDS: Ferrous Sulfate 325 MG TAB PO ×2 (08:40→20:38)
[2020-11-16] MEDS: Pantoprazole 40 MG TABCR PO (08:40)
[2020-11-16] MEDS: Calcium Carbonate 1.5 GM TAB 3 GM PO ×3 (08:41→20:38)
[2020-11-16] MEDS: Gabapentin 300 MG CAP PO ×3 (08:41→20:38)
[2020-11-16] MEDS: Magnesium Oxide 400 MG TAB PO ×3 (08:41→20:42)
[2020-11-16] MEDS: Cholecalciferol (Vitamin D3) 1,000 UNIT TAB 1000 UNITS PO (08:41)
[2020-11-16] MEDS: Insulin Aspart 300 UNITS/3 ML PEN SC ×5 (08:42→18:06)
[2020-11-16] MEDS: Multivitamin TAB 1 TAB PO (08:42)
[2020-11-16] MEDS: Collagenase 30 GM TUBE TP (08:44)
[2020-11-16] MEDS: Polyethylene Glycol 3350 17 GM PACKET PO (08:46)
[2020-11-16] MEDS: Fluticasone NASAL SPRAY 16 GM BTL NS (08:46)
[2020-11-16] MEDS: Normal Saline Flush 10 ML SYR (08:47)
[2020-11-16] MEDS: VANCOMYCIN/WATER (PEG) 1.5 GM/300 ML BAG IV (08:48)
--- NOTE | 2020-11-16 11:24 | PHACLINREV_ITS ---
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 (Acute) Neurogenic bladder (Acute) Quadriplegia and quadriparesis (Acute) Syringomyelia and syringobulbia (Acute) sulfamethoxazole [From Bactrim] Allergy (Severe, Verified 11/15/20 02:45) facial swelling trimethoprim [From Bactrim] Allergy (Severe, Verified 11/15/20 02:45) facial swelling lactose Allergy (Intermediate, Verified 11/15/20 02:47) nausea and vomiting levofloxacin Allergy (Intermediate, Verified 11/15/20 02:47) Hives Resuscitation Status Full Code Height 5 ft 4 in Weight 78.6 kg - Renal Dosing Renal Dosing: BUN 18 mg/dL (7-18) D 11/16/20 06:15 Creatinine 0.9 mg/dL (0.70-1.30) 11/16/20 06:15 Medications needing adjustments: Reviewed (CRCL ~74ML/MIN) - Anticoagulation Anticoagulation: Hgb 6.9 g/dL (13.5-17.5) L* 11/16/20 06:15 Hct 22.2 % (40.0-50.0) L 11/16/20 06:15 Plt Count 312 10^3/uL (130-400) 11/16/20 06:15 Creatinine 0.9 mg/dL (0.70-1.30) 11/16/20 06:15 DVT Prophylaxis: Reviewed Medications: Enoxaparin Therapeutic Anticoagulation: N/A - Relevant Labs Sodium 137 mmol/L (136-145) 11/16/20 06:15 Potassium 4.1 mmol/L (3.5-5.1) 11/16/20 06:15 Chloride 102 mmol/L (98-107) 11/16/20 06:15 Magnesium 1.8 mg/dL (1.8-2.4) 11/16/20 06:15 C-Reactive Protein 5.70 mg/dL (0.0-0.3) H 11/15/20 06:50 - DM Control DM Control: Glucose 225 mg/dL (74-106) H 11/16/20 06:15 Hemoglobin A1c 9.9 % (<5.7) H 11/15/20 06:50 Finger Stick Blood Glucose 221 Finger Stick Blood Glucose 221 Insulin Dosing: Reviewed (insulin aspart and glargine) - BP Control BP Control: Blood Pressure [Left Arm] 74/42 Blood Pressure 79/60 Blood Pressure 73/45 Blood Pressure 67/38 Blood Pressure 65/38 Blood Pressure 65/37 Blood Pressure 65/47 Blood Pressure 54/25 Blood Pressure 62/35 Blood Pressure 60/30 Blood Pressure 71/43 Blood Pressure 76/45 Blood Pressure 77/47 Blood Pressure 78/44 Blood Pressure 87/54 Blood Pressure 62/30 Blood Pressure 92/55 Blood Pressure 85/64 Blood Pressure 74/42 Blood Pressure 79/36 Blood Pressure 82/36 Blood Pressure 91/68 - Home Meds Home Med List reviewed: Reviewed - Current meds Current Medication Order Review: Reviewed (he told surgery he doesn't want debridement.pt eating,alert, not septic, hypotensive)
--- NOTE | 2020-11-16 12:28 | W.PM.PROGNOT ---
Date of Service Date of service: 11/16/20 Time of Service: 12:28 Assessment and Plan Assessment and plan (1) Hypotension: Status: Acute Assessment and plan: Patient's blood pressure runs low chronically with SBP in 80-90's BP has been modestly fluid responsive. Some decree of autonomic dysfunction is possible. He has had no lethargy or mental status changes with low BP readings. His elbows are contracted in flexed possiton and this may effect BP readings in the upper arms. (2) Anemia: Status: Chronic Assessment and plan: Hgb in the low 7's on admission. Decreased to 6.9. 2 units RBCs transfused. Qualifiers: Anemia type: unspecified type Qualified Code(s): D64.9 - Anemia, unspecified (3) Decubitus skin ulcer: Status: Acute Assessment and plan: Wound care nurse has evaluated and made recommendations. Gen surgery consulted for debridement; pt declines debridement efforts. Consulted palliative care. W/O debridement and improved skin care / wound care he will develop osteomyelitis if he hasn't already done so. He does refuse an MRI to evaluate for osteomyelitis. MRSA nasal swab for screening; if negative, can stop Vancomycin. Cont Ceftriaxone. Qualifiers: Pressure injury location: sacral region Pressure injury stage: stage 4 Qualified Code(s): L89.154 - Pressure ulcer of sacral region, stage 4 (4) Diabetic hyperosmolar non-ketotic state: Status: Acute Assessment and plan: Glucose values improved. At home, was not taking any diabetic meds. A1c 9.9. Cont Basa/bolus and sliding scale correction insulin dosing. (5) Quadriplegia and quadriparesis: Status: Acute Assessment and plan: Long standing. Poor compliance with repositioning. Subjective Subjective Patient reports: still having pain (buttocks, scrotum; areas of skin breakdown.) and tolerating a regular diet; denies diarrhea, nausea and vomiting Interval history since last seen: + cough Exam Const General: cooperative and no acute distress Nutritional Appearance: overweight Orientation: alert, awake and oriented x3 HENMT Head: normal to inspection and normocephalic Ears: hearing grossly normal bilaterally General nose exam: external nose normal Face and sinus: normal facial exam Mouth: oral mucosa abnormal other (Dry) Teeth and gingiva: poor dentition Eyes General: appearance normal, both eyes and all related structures Sclera: sclerae normal Resp Effort & Inspection: normal respiratory effort and able to speak in complete sentences Auscultation: clear to auscultation bilaterally Cardio Rate: regular rate Rhythm: regular rhythm Heart Sounds: S1 normal and S2 normal Pulses: posterior tibial pulses present bilaterally diminished GI Inspection: non-distended, scar and other (Colostomy in right lower quadrant with light brown stool, pink stoma) Palpation: soft Auscultation: normal bowel sounds Male General Exam: Yes normal external exam Penis: normal penis and other (Indwelling Coronel catheter) Back/Spine/Pelvis Cervical Spine: normal cervical lordosis Thoracic/Lumbar Spine: scoliosis Skin Wounds: wounds noted (Both ankles and both heels have Mepilex covering his wounds) Full body images: 1. Red macerated skin with multiple fissures and ulcerations. Presence of areas of necrotic skin. Neuro General: patient alert, patient awake and patient oriented x3 Cognition: normal cognition Speech: speech normal Motor: muscle tone abnormal and strength abnormal Extrem General: no pedal edema Objective Last Vital Signs Temp 35.5 C L 11/16/20 11:00 Pulse 76 11/16/20 11:01 Resp 14 11/16/20 11:01 BP 79/60 L 11/16/20 11:01 Pulse Ox 87 L 11/16/20 11:01 Laboratory Results - last 24 hr 11/16/20 11/16/20 11/16/20 06:15 06:15 06:15 WBC 8.26 D RBC 2.89 L Hgb 6.9 L* Hct 22.2 L MCV 76.8 L MCH 23.9 L MCHC 31.1 L RDW 17.0 H Plt Count 312 MPV 8.8 Immature Gran % 0.6 Neutrophils % 62.4 Lymphocytes % 28.3 Monocytes % 6.1 Eosinophils % 2.4 Basophils % 0.2 Nucleated RBC % 0 Absolute Neutrophils 5.15 Absolute Lymphocytes 2.34 Absolute Monocytes 0.50 Absolute Eosinophils 0.20 Absolute Basophils 0.02 VBG Lactate Sodium 137 Potassium 4.1 Chloride 102 Carbon Dioxide 32.4 H Anion Gap 2.6 L BUN 18 D Creatinine 0.9 Estimated GFR/1.73 m2 >= 60.00 Glucose 225 H Calcium 8.3 L Magnesium 1.8 Iron TIBC Transferrin % Sat Vitamin B12 Folate Patient ABO/Rh Antibody Screen Crossmatch 11/16/20 11/16/2021 06:15 06:15 06:15 WBC RBC Hgb Hct MCV MCH MCHC RDW Plt Count MPV Immature Gran % Neutrophils % Lymphocytes % Monocytes % Eosinophils % Basophils % Nucleated RBC % Absolute Neutrophils Absolute Lymphocytes Absolute Monocytes Absolute Eosinophils Absolute Basophils VBG Lactate 0.8 Sodium Potassium Chloride Carbon Dioxide Anion Gap BUN Creatinine Estimated GFR/1.73 m2 Glucose Calcium Magnesium Iron 42 L TIBC 146 L Transferrin % Sat 29 Vitamin B12 947 Folate > 20.0 H Patient ABO/Rh Antibody Screen Crossmatch 11/16/20 07:45 WBC RBC Hgb Hct MCV MCH MCHC RDW Plt Count MPV Immature Gran % Neutrophils % Lymphocytes % Monocytes % Eosinophils % Basophils % Nucleated RBC % Absolute Neutrophils Absolute Lymphocytes Absolute Monocytes Absolute Eosinophils Absolute Basophils VBG Lactate Sodium Potassium Chloride Carbon Dioxide Anion Gap BUN Creatinine Estimated GFR/1.73 m2 Glucose Calcium Magnesium Iron TIBC Transferrin % Sat Vitamin B12 Folate Patient ABO/Rh O Positive Antibody Screen NEGATIVE Crossmatch See Detail
[2020-11-16 13:08] LABS: Source Nasal/Nares
[2020-11-16 14:00] LABS: COVID-19 PCR Negative (Negative)
--- NOTE | 2020-11-16 14:59 | PGE_ITS ---
Date of Service Date of service: 11/16/20 Time of Service: 12:59 Assessment and Plan Assessment and plan (1) Decubitus skin ulcer: Status: Acute Assessment and plan: -Patient continues to refuse any further surgical debridement or MRI to rule out the presence of osteomyelitis and prefers to continue local wound care -Continue q2 offloading, air mattress when possible -Verbalizes understanding that wounds need to be taken optimal care of to prevent the development of a potentially life-threatening infection. -Blood glucose control, A1C 9.9, needs continued education on diabetes management -Would benefit from SNF vs home for more aggressive/active wound care when medically cleared -Discussed the above with Dr. Bender, please call for any concerns or re- evaluation Qualifiers: Pressure injury location: sacral region Pressure injury stage: stage 4 Qualified Code(s): L89.154 - Pressure ulcer of sacral region, stage 4 (2) S/P colostomy: Status: Acute (3) Quadriplegia and quadriparesis: Status: Acute (4) Syringomyelia and syringobulbia: Status: Acute (5) Anemia: Status: Chronic Assessment and plan: s/p 2 units of PRBC, likely chronic related to malnutrition, no evidence of active bleeding Qualifiers: Anemia type: unspecified type Qualified Code(s): D64.9 - Anemia, unspecified Subjective Subjective Patient reports: no new complaints and feels better Exam Const General: cooperative, comfortable and no acute distress Resp Effort & Inspection: normal respiratory effort and no audible wheezes Cardio Rate: regular rate Rhythm: regular rhythm Skin General skin exam: erythema (diffuse, evidence of MASD on entire sarcal, gluteal and ischial areas) Wounds: wounds noted (multiple wounds in various stages on sacrum, ischial tuberosities, scrotum) Objective Last Vital Signs Temp 96.3 F L 11/16/20 12:45 Pulse 83 11/16/20 14:06 Resp 18 11/16/20 14:06 BP 98/69 L 11/16/20 14:06 Pulse Ox 96 11/16/20 14:06 Laboratory Results - last 24 hr 11/16/20 11/16/20 11/16/20 06:15 06:15 06:15 WBC 8.26 D RBC 2.89 L Hgb 6.9 L* Hct 22.2 L MCV 76.8 L MCH 23.9 L MCHC 31.1 L RDW 17.0 H Plt Count 312 MPV 8.8 Immature Gran % 0.6 Neutrophils % 62.4 Lymphocytes % 28.3 Monocytes % 6.1 Eosinophils % 2.4 Basophils % 0.2 Nucleated RBC % 0 Absolute Neutrophils 5.15 Absolute Lymphocytes 2.34 Absolute Monocytes 0.50 Absolute Eosinophils 0.20 Absolute Basophils 0.02 VBG Lactate Sodium 137 Potassium 4.1 Chloride 102 Carbon Dioxide 32.4 H Anion Gap 2.6 L BUN 18 D Creatinine 0.9 Estimated GFR/1.73 m2 >= 60.00 Glucose 225 H Calcium 8.3 L Magnesium 1.8 Iron TIBC Transferrin % Sat Vitamin B12 Folate COVID-19 Source SARS-CoV-2 (PCR) Patient ABO/Rh Antibody Screen Crossmatch 11/16/20 11/16/20 11/16/20 06:15 06:15 06:15 WBC RBC Hgb Hct MCV MCH MCHC RDW Plt Count MPV Immature Gran % Neutrophils % Lymphocytes % Monocytes % Eosinophils % Basophils % Nucleated RBC % Absolute Neutrophils Absolute Lymphocytes Absolute Monocytes Absolute Eosinophils Absolute Basophils VBG Lactate 0.8 Sodium Potassium Chloride Carbon Dioxide Anion Gap BUN Creatinine Estimated GFR/1.73 m2 Glucose Calcium Magnesium Iron 42 L TIBC 146 L Transferrin % Sat 29 Vitamin B12 947 Folate > 20.0 H COVID-19 Source SARS-CoV-2 (PCR) Patient ABO/Rh Antibody Screen Crossmatch 11/16/20 11/16/20 11/16/20 07:45 12:35 13:00 WBC RBC Hgb Hct MCV MCH MCHC RDW Plt Count MPV Immature Gran % Neutrophils % Lymphocytes % Monocytes % Eosinophils % Basophils % Nucleated RBC % Absolute Neutrophils Absolute Lymphocytes Absolute Monocytes Absolute Eosinophils Absolute Basophils VBG Lactate Sodium Potassium Chloride Carbon Dioxide Anion Gap BUN Creatinine Estimated GFR/1.73 m2 Glucose Calcium Magnesium Iron TIBC Transferrin % Sat Vitamin B12 Folate COVID-19 Source Cancelled Nasal/Nares SARS-CoV-2 (PCR) Cancelled Negative Patient ABO/Rh O Positive Antibody Screen NEGATIVE Crossmatch See Detail
[2020-11-16] MEDS: Nystatin POWDER 60 GM JAR TP (20:39)
[2020-11-16] MEDS: Insulin Glargine 300 UNITS/3 ML PEN 10 UNITS SC (21:39)
[2020-11-16] MEDS: LORazepam 0.5 MG TAB PO (21:40)
[2020-11-16] MEDS: Pramipexole 0.25 MG TAB PO (21:40)
[2020-11-16] MEDS: Pramipexole 0.5 MG TAB PO (21:44)
[2020-11-17 03:00] VITALS: BP 116/75; PULSE 98; RESP 18; TEMP 36.3; O2SAT 94
[2020-11-17] MEDS: cefTRIAXone 1 GM/50 ML BAG IVPB (04:07)
[2020-11-17 07:29] LABS: HCT 25.4 % (40.0-50.0); HGB 7.8 g/dL (13.5-17.5); MCH 23.7 pg (27.0-33.0); MCHC 30.7 % (32.0-36.0); MCV 77.2 fL (80-95); Platelet Count 321 10^3/uL (130-400); RBC 3.29 10^6/uL (4.36-5.78); RDW 17.2 % (11.8-14.1); RDW-SD 46.8 fL; WBC 9.92 10^3/uL (4.4-10.8)
[2020-11-17 07:30] VITALS: BP 90/56; PULSE 91; RESP 17; TEMP 37.1; O2SAT 95
[2020-11-17] MEDS: Cholecalciferol (Vitamin D3) 1,000 UNIT TAB 1000 UNITS PO (09:01)
[2020-11-17] MEDS: Calcium Carbonate 1.5 GM TAB 3 GM PO ×3 (09:01→20:08)
[2020-11-17] MEDS: Furosemide 20 MG TAB PO (09:02)
[2020-11-17] MEDS: Ferrous Sulfate 325 MG TAB PO ×2 (09:02→20:08)
[2020-11-17] MEDS: Enoxaparin 40 MG/0.4 ML SYR SC (09:02)
[2020-11-17] MEDS: fentaNYL 75 MCG PATCH TD (09:02)
[2020-11-17] MEDS: Insulin Aspart 300 UNITS/3 ML PEN SC ×4 (09:03→18:05)
[2020-11-17] MEDS: Gabapentin 300 MG CAP PO ×3 (09:03→20:08)
[2020-11-17] MEDS: Magnesium Oxide 400 MG TAB PO ×2 (09:04→20:08)
[2020-11-17] MEDS: Multivitamin TAB 1 TAB PO (09:05)
[2020-11-17] MEDS: Pantoprazole 40 MG TABCR PO (09:05)
[2020-11-17] MEDS: Nystatin POWDER 60 GM JAR TP ×2 (09:05→20:08)
[2020-11-17] MEDS: Polyethylene Glycol 3350 17 GM PACKET PO (09:06)
--- NOTE | 2020-11-17 10:05 | CMPROGNOTE_ITS ---
- If Service Date Differs Date of service: 11/17/20 Time of Service: 10:05 Care Management Progress Note S/O: Jose was sitting up in bed when CM met with him. He was alert and oriented and easily engaged in conversation. Jose shares that he is more than ready to go home where he feels supported by his son and daughter in law who live nearby, plus his brother from [place] will also be staying with him. He is agreeable to stay another night and talk with a freelance programmer/app developer prior to his discharge. CM will continue to support discharge needs. A: 59 year old male admitted to [facility] on 11/16/20 for hyperosmolar, nonketotic hyperglycemia P: Anticipate that Jose will elect to transport home via EMS when medically cleared with resumption of [facility] services which includes SN, PT and wound care. He would likely benefit from surgical debridement followed by SNF for wound care but he prefers to go home with wound care from his local [facility]NA. CM will continue to support discharge needs and arrange transportation via EMS upon discharge.
[2020-11-17] MEDS: glipiZIDE 5 MG TAB PO (10:58)
[2020-11-17] MEDS: metFORMIN 500 MG TAB PO ×2 (10:58→18:06)
[2020-11-17] MEDS: Fluticasone NASAL SPRAY 16 GM BTL NS (11:00)
[2020-11-17 11:30] VITALS: BP 89/60; PULSE 88; RESP 17; TEMP 36.8; O2SAT 95
--- NOTE | 2020-11-17 14:04 | W.NUTCONSULT ---
Date of service: 11/17/20 Time of Service: 13:30 Nutritional Consult ASSESSMENT: Mr. Phan is admitted with hyperosmolar, non-ketotic hyperglycemia. He also has sacral decubitius ulcers. Blood sugars have mostly been at target except for today there were two readings above target. He takes glargine, aspart, glipizide, and metformin with regard to medications for diabetes. Attempted to visit with Mr. Phan today to talk about his nutritional history and eating habits etc. I was unable to arouse him from sleep enough. Patient Engineering Test Specialist ([employer]), Tiera was also trying to get a menu selection from his as well and stated that she had been unable to wake him all day to speak to him. PO intake here is good. He gets Glucerna supplements with meals. Mr. Phan is 163 cm and 69.8 kg. His BMI is 26.4 kg/m2 which is c/w mild overweight. Estimated energy needs are 2050 kcal/day (REE x 1.1 (AF) x 1.3(SF). Estimated protein needs are 104 g to 140 g/day (1.5-2.0 g/kg/day) Estimated fluid needs are 2050 ml/day (1 ml/kcal provided/day) Current diet order is carbohydrate consistent/heart healthy. NUTRITIONAL DIAGNOSIS: Increased nutritional needs for wound healing related to decubiti on sacrum. INTERVENTION: Continue with Glucerna supplements tid. Will provide double portions of protein entree at meals. If he eats 75 to 100% of his meals he would get 110 g to 147 g of protein per day and 1900 to 2500 kcal/day. Please order liquid protein to be given three times per day for this patient. (which is an additional 63 g of protein daily) MONITORING AND EVALUATION: 1. Will monitor his tolerance to Glucerna supplements. 2. Will monitor overall PO intake and tolerance to increased portions of protein food. 3. Will evaluate nutrition care plan ongoing and adjust as needed. Will work with Mr. Phan to find alternative ways to increase his protein intake should he not tolerate increased protein portions. 4. Will evaluate healing based on wound care reports and again adjust nutrition care plan accordingly. Time Spent in Nutritional Counseling and Treatment: 30 minutes
[2020-11-17 15:38] VITALS: BP 93/68; PULSE 88; RESP 16; TEMP 36.8; O2SAT 93
--- NOTE | 2020-11-17 18:15 | PCNE_ITS ---
Date of service: 11/17/20 Time of Service: 16:00 History of Present Illness History of Present Illness Chief Complaint: worsening pressure ulcers, quadraplegia Narrative: I met Jack for the first time in his hospital room. He was admitted from [facility] for further care, as they had no beds available. He usually gets his health care there. He is diabetic but usually does not take his diabetic medications as prescribed. He reported that he had been drinking at least 12 cans of Mountain Dew daily for the last few days prior to admission. He has had 24/7 caregivers for several years; his long-standing caregiver, Zehra, gave notice about 2-3 weeks ago. He also usually gets [facility] home health services. They know him well. I spoke to Danielle Giordano RN from that organization. She explained that Jack's health has gone rapidly downhill over the previous 2-3 weeks, since his caregiver Zehra left. A caregiver, Meri, has remained, but she doesn't provide as many hours nor is she as medically competent as Zehra, according to the team. Jack's brother has stepped in for a few hours per week, but this is not enough to keep Jack functioning at home. He has very limited use of his upper arms. He needs both hands to grasp a pen or a cup. He is totally reliant on care for his ADLs. He has not always had someone with him. He was evaluated by the wound and surgical team for his pressure ulcers. He does NOT want any debridement or aggressive intervention. He was very clearly a DNR/DNI. We filled out a COLST form together. A copy was sent to [facility] and to [facility], and scanned into our chart. He wants to go home as soon as the hospitalist team lets him, ideally no longer than tomorrow. (He thought he was going home today). Consults Consult date: 11/17/20 Requesting physician: Swapnil Bender Assessment and Plan Assessment and plan (1) Palliative care patient: Status: Acute Assessment and plan: Usually gets his care at [facility]. Unlikely to return to [facility]. Did speak to [facility] and they know Jack well. Will try to keep him comfortable at home as long as it is safe. Concerns about inadequate caregiving. (2) Decubitus skin ulcer: Status: Acute Assessment and plan: Chronic. Recurrent. Worse since long-term caregiver left. Need to rebuild a team that can move him often. Qualifiers: Pressure injury location: sacral region Pressure injury stage: stage 4 Qualified Code(s): L89.154 - Pressure ulcer of sacral region, stage 4 (3) Neurogenic bladder: Status: Acute (4) Quadriplegia and quadriparesis: Status: Acute (5) Injury while horseback riding: Status: Chronic (6) DNI (do not intubate): Status: Acute (7) DNR (do not resuscitate): Status: Acute (8) Goals of care, counseling/discussion: Status: Acute (9) POLST (Physician Orders for Life-Sustaining Treatment): Status: Acute Assessment and plan: Bill was listed as full code when he was admitted. He was very clear in our conversation that he would not want CPR or ventilation. He would want a natural . We talked about the shortened lifespan of people with quadriparesis. He is aware. As long as he can enjoy his life, is not in pain, and has some independence, he will keep on going. He filled out a COLST form with me, using both hands to make his julia under signature. He said that he has told his brother Rio what he wants and Rio supports his decision. Review of Systems Constitutional Constitutional: Reports as per HPI, Reports fatigue, Denies fever(s) and Reports malaise Eyes Eyes: Reports blurry vision ENT Ears, Nose, Mouth, and Throat: Reports dizziness Cardiovascular Cardiovascular: Denies dyspnea Respiratory Respiratory: Denies dyspnea and Denies wheezing Gastrointestinal Gastrointestinal: Denies abdominal pain, Denies diarrhea, Denies nausea and Denies vomiting Integumentary/Breasts Skin/Breast: Reports wounds Neurologic Neurologic: Reports dizziness Endocrine Endocrine: Reports fatigue Allergic/Immunologic Allergic/Immunologic: Denies wheezing [facility] Medical History (Updated 11/18/20 @ 13:50 by Jayla Clark MD) Anemia Chronic rhinitis Diabetes mellitus type 2, controlled, without complications DNI (do not intubate) DNR (do not resuscitate) GERD (gastroesophageal reflux disease) Goals of care, counseling/discussion Injury while horseback riding broke his neck 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 Neurogenic bladder Obesity Palliative care patient POLST (Physician Orders for Life-Sustaining Treatment) Pressure ulcer of sacrum Quadriplegia and quadriparesis Restless legs Syringomyelia and syringobulbia Surgical History History of drainage of abscess (~10/18/19) Necrotic decubitus ulcer of sacrum stage IV, necrotic decubitus ulcer of left posterior thigh/gluteal crease (ischial) stage IV S/P colostomy (~10/04/19) Stage IV sacral decubitus ulcers, quadriplegia Status post debridement (~08/27/20) Bilateral ingrown toenails, chronic decubitus pressure ischial and sacral ulcer stage III, crease stage IV, necrotic decubitus ulcer right posterior thigh/gluteal crease stage IV Status post debridement (~10/11/19) Necrotic decubitus ulcer of sacrum stage IV, necrotic decubitus ulcer of left posterior thigh/gluteal crease-stage IV, necrotic decubitus ulcer right posterior thigh/gluteal crease-stage IV Family History (Updated 11/18/20 @ 13:51 by Jayla Clark MD) Brother No problems noted. Brother No problems noted. Mother , of cancer in her 60s Cancer Father , of cancer in his late 60s Cancer Social History (Updated 11/19/20 @ 21:33 by Jayla Clark MD) Smoking/Tobacco Use Status: Current every day Tobacco: How many years used: 30 Smokeless tobacco user: chewing tobacco Quit status: not considering quitting Counseling given: provider counseling Smoking risk assessment performed?: Yes Alcohol Intake: current Counseling given: Yes Counseling provided: reduce to 2 or less/day Drug use: Occasionally Substance use type: marijuana Caregiver/Support person: Yes (hired Meri [employer]; brother helps a bit) Household members: none Housing: apartment Number of Children: 0 Communication Needs: Corrective Lenses Education Level: high school Do you need help understanding health information?: Always current occupation: disabled since age 25 due to neck fx/quadraparesis Pets and animals: No Current gender identity: male What is your relationship status?: never How often do you talk on the phone with friends or family?: three or more times per week How often do you get together with friends or relatives?: twice per week Panel score (0-1 are the most socially isolated patients): 1 What type of physical activity do you participate in: sedentary lifestyle Frequency: does not exercise Special maxim needs: No Agree to transfusion: No Seatbelt use: always Working smoke detector in home: Yes Fire extinguisher in home: Yes Do you feel safe at home: Yes Additional Social history: Jack tells me he was thrown from a horse when he was 25 and fractured his neck, but he didn't realize it for 3 months or so. 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 His father took him to the hospital where they discovered his fracture and spinal cord injury. He has lived on his own with help since then. His caregiver, Ruth, was with him for more than 10 years. She left to take another job caring for people. He does not have adequate help currently. He has a motorized WC at home, but needs help getting in and out of it. He has a colostomy so he doesn't sit in soiled depends, but he doesn't move often enough for adequate blood flow so he has developed chronic pressure ulcers and wounds. His HH team said he has had multiple prolonged hospitalizations and time in a rehab, most recently last year. He will not go to a rehab again, he said. He would rather have hospice when that time comes--but he has no one to provide care.... Exam Const General: cooperative and no acute distress Nutritional Appearance: overweight Orientation: alert, awake and oriented x3 HENMT Head: normal to inspection and normocephalic Ears: hearing grossly normal bilaterally General nose exam: external nose normal Face and sinus: normal facial exam Mouth: oral mucosa abnormal other (Dry) Teeth and gingiva: poor dentition Eyes General: appearance normal, both eyes and all related structures Sclera: sclerae normal Resp Effort & Inspection: normal respiratory effort and able to speak in complete sentences Auscultation: clear to auscultation bilaterally Cardio Rate: regular rate Rhythm: regular rhythm Heart Sounds: S1 normal and S2 normal Pulses: posterior tibial pulses present bilaterally diminished GI Inspection: non-distended, scar and other (Colostomy in right lower quadrant with light brown stool, pink stoma) Palpation: soft Auscultation: normal bowel sounds Male General Exam: Yes normal external exam Penis: normal penis and other (Indwelling Coronel catheter) Back/Spine/Pelvis Cervical Spine: normal cervical lordosis Thoracic/Lumbar Spine: scoliosis Skin Wounds: wounds noted (Both ankles and both heels have Mepilex covering his wounds) Neuro General: patient alert, patient awake and patient oriented x3 Cognition: normal cognition Speech: speech normal Motor: muscle tone abnormal and strength abnormal Extrem General: no pedal edema Results Last Vital Signs Temp 98.2 F 11/17/20 15:38 Pulse 88 11/17/20 15:38 Resp 16 11/17/20 15:38 BP 93/68 L 11/17/20 15:38 Pulse Ox 93 11/17/20 15:38 Labs Result diagrams: 11/17/20 06:55 11/16/20 06:15 Labs: Laboratory Results - last 24 hr 11/17/20 06:55 WBC 9.92 RBC 3.29 L Hgb 7.8 L Hct 25.4 L MCV 77.2 L MCH 23.7 L MCHC 30.7 L RDW 17.2 H Plt Count 321 MPV 9.0
[2020-11-17] MEDS: Lactated Ringers 1,000 ML 50 ML IV (19:18)
[2020-11-17] MEDS: oxyCODONE 5 mg/Acetaminophen 325 mg TAB 2 TAB PO (20:08)
[2020-11-17] MEDS: Collagenase 30 GM TUBE TP (20:10)
[2020-11-17 20:35] VITALS: BP 75/53; PULSE 91; RESP 16; TEMP 36.7; O2SAT 96
[2020-11-17] MEDS: Pramipexole 0.25 MG TAB PO (21:42)
[2020-11-17] MEDS: Pramipexole 0.5 MG TAB PO (21:42)
[2020-11-17] MEDS: LORazepam 0.5 MG TAB PO (21:42)
[2020-11-18] VITALS: BP 118/78; PULSE 89; RESP 14; TEMP 36.4; O2SAT 92
[2020-11-18] MEDS: cefTRIAXone 1 GM/50 ML BAG IVPB (04:57)
[2020-11-18 05:01] VITALS: BP 114/76; PULSE 85; RESP 16; TEMP 36.5; O2SAT 96
[2020-11-18] MEDS: Enoxaparin 40 MG/0.4 ML SYR SC (08:29)
[2020-11-18] MEDS: Fluticasone NASAL SPRAY 16 GM BTL NS (08:29)
[2020-11-18] MEDS: Calcium Carbonate 1.5 GM TAB 3 GM PO (08:30)
[2020-11-18] MEDS: Furosemide 20 MG TAB PO (08:30)
[2020-11-18] MEDS: Magnesium Oxide 400 MG TAB PO (08:30)
[2020-11-18] MEDS: Ferrous Sulfate 325 MG TAB PO (08:31)
[2020-11-18] MEDS: metFORMIN 500 MG TAB PO (08:31)
[2020-11-18] MEDS: glipiZIDE 5 MG TAB PO (08:31)
[2020-11-18] MEDS: Gabapentin 300 MG CAP PO (08:31)
[2020-11-18] MEDS: Pantoprazole 40 MG TABCR PO (08:31)
[2020-11-18] MEDS: Multivitamin TAB 1 TAB PO (08:31)
[2020-11-18] MEDS: Cholecalciferol (Vitamin D3) 1,000 UNIT TAB 1000 UNITS PO (08:31)
[2020-11-18] MEDS: Polyethylene Glycol 3350 17 GM PACKET PO (08:32)
--- NOTE | 2020-11-18 11:11 | DSE_ITS ---
Date of service: 11/18/20 Time of Service: 11:11 DS: Diagnosis Discharge Diagnosis (1) Decubitus skin ulcer: Status: Acute (2) S/P colostomy: Status: Acute (3) Quadriplegia and quadriparesis: Status: Acute (4) Syringomyelia and syringobulbia: Status: Acute (5) Anemia: Status: Chronic Discharge Plan Disposition Patient Disposition: HOME W/HOME HEALTH SERVICE Condition: Improving Discharge Details Reason For Visit: Hyperosmolar Nonketotic Hyperglycemia Admit Date/Time: 11/15/20 01:14 Admit Provider: Gonzales Carey Attending Provider: Gonzales Carey Primary Care Provider: Unknown,Unknown Hospital Course Hospital Course: 59-year-old male with a history of multiple medical problems including quadriplegia with quadriparesis, type 2 diabetes mellitus not currently on treatment, chronic anemia, restless leg syndrome, insomnia, syringomyelia and syringobulbia, GERD, neurogenic bladder, long-term use of opiate for pain control who presents to the emergency department because of elevated fingerstick blood sugar. Patient has visiting nurse that comes once a week for his wound care and happened to check a fingerstick blood sugar and was reading high on the machine. Patient was referred to the emergency department for further evaluation. He states he has been in his usual state of health with no fever chills nausea or vomiting or diarrhea. Appetites been good. He states he has had increased thirst over the last week and drinking a lot of sodas. Patient is not currently vaccinated against Covid but has had no fever or chills or Covid exposure. He reportedly was tested at [facility] emergency room and was negative for COVID-19. Patient states that he was diagnosed with diabetes mellitus was found to have decubitus ulcer infection about a year ago and had been on Metformin until several months ago. Patient's primary care provider is Jorge L Qureshi however the patient was seen in the emergency department by Dr. Kyra Miles. He was found to have an elevated lab drawn glucose of 653 and an elevated BUN at 35 with a normal creatinine 1.0. Serum sodium was critically low at 125 but corrects to a level of 138 based on his elevated glu cose. Urinalysis is abnormal with cloudy yellow urine, specific gravity 1.010, pH 7.0, moderate leukocyte esterase, negative nitrites, 4+ glucose and negative for ketones, negative for protein and greater than 100 white cells per high- powered field with many bacteria and no epithelial cells. This was taken from an indwelling Coronel catheter. Serum ketone level was obtained and found to be within normal limits at 0.4 CBC demonstrated anemia with microcytosis. Hemoglobin 9.2 g hematocrit 29% MCV of 75 with an RDW of 17 and platelet count of 3 and 71,000. His white cell count was normal at 8900. Patient was given 2 L of normal saline and was started on insulin drip at 7.5 units an hour. ED physician at [facility] Dr. Miles to accept the patient in transfer as they had no beds at [facility] in [facility] and they did already called [facility] in [place] and [facility] in [facility] and neither of those tertiary care centers had bed availability. His urine culture grew mixed gram positive aury and <[id number] gram neg. rods. His glucose corrected in an appropriate manner with fluids and insulin. He was initially maintained on basal/bolus insulin then converted to Glipizide 5mg daily and Metformin 500mg BID. family living educator was consulted. Wound care evaluation ensued. He had extensive maceration of his buttocks, perineum/scrotum, proximal thighs. He was noted to have some deep fissures and small ulcerations as well has areas of necrotic tissue. He refused debridement by the general surgeon. Wound care products and dressings were changed from home regimen and are documented in this DC summary. Resume home health services. F/U with PCP in 1-2 weeks. Home Meds and New Rx's Prescriptions: New metformin 500 mg Tablet 500 mg PO BID@0800,1700 Qty: 60 RF: 0 glimepiride [Amaryl] 2 mg tablet 2 mg PO DAILY Qty: 30 RF: 0 Continued polyethylene glycol 3350 [Miralax] 17 gram Powder In Packet 17 g PO DAILY RF: 0 fluconazole 150 mg Tablet 300 mg PO QWEEK RF: 0 acetaminophen 500 mg Tablet 1,000 mg PO Q6H PRN (Reason: Pain) RF: 0 lorazepam 0.5 mg Tablet 0.5 mg PO HS RF: 0 ferrous sulfate 325 mg (65 mg iron) Tablet 325 mg PO BID RF: 0 docusate sodium [Colace] 100 mg Capsule 200 mg PO DAILY PRN (Reason: Constipation) RF: 0 gabapentin 300 mg Capsule 300 mg PO TID RF: 0 furosemide 20 mg Tablet 20 mg PO BID RF: 0 ibuprofen 600 mg Tablet 600 mg PO Q6H PRN (Reason: Pain) RF: 0 fentanyl 75 mcg/hr Patch 72 Hour 1 patch transdermal Q72H RF: 0 fluticasone propionate 50 mcg/actuation [place],Suspension 2 spray INTRANASAL DAILY RF: 0 cholecalciferol (vitamin D3) 25 mcg (1,000 unit) Capsule 25 mcg PO DAILY RF: 0 Ensure High Protein Liquid RF: 0 magnesium oxide 400 mg magnesium Tablet 400 mg PO BID RF: 0 multivitamin Tablet 1 tab PO DAILY RF: 0 sennosides 8.6 mg Tablet 34.4 mg PO DAILY PRN (Reason: Constipation) RF: 0 calcium carbonate 300 mg (750 mg) Tablet,Chewable 2 tab PO TID RF: 0 ondansetron 8 mg Tablet,Disintegrating 8 mg translingual Q8H PRN (Reason: Nausea) RF: 0 pramipexole 0.5 mg Tablet 0.5 mg PO HS RF: 0 oxycodone-acetaminophen 5-325 mg Tablet 2 tab PO TID PRN (Reason: Pain) RF: 0 pantoprazole 40 mg Tablet,Delayed Release (Dr/Ec) 40 mg PO DAILY RF: 0 pramipexole 0.25 mg Tablet 0.25 mg PO HS RF: 0 nystatin [Nystop] 100,000 unit/gram Powder 1 applic TOPICAL BID RF: 0 Narcan 4 mg/actuation [place],Non-Aerosol 1 spray INTRANASAL PRN PRN (Reason: Opioid Reversal) RF: 0 Discharge Instructions Instructions: Hyperosmolar Hyperglycemic State (DC) Additional Instructions: Wound Care Left heel- Skin prep around area, cover with mepilex, change q 3 days and PRN Bilat heels- apply offloading boots when in bed Right lateral malleolus- Cleanse with ns, pat dry, apply mepilex. Change q 3 days an PRN Right abd fold and nicolas area/ groin- Cleanse area, pat dry. Apply triple cream (A and D, clotrimazole and zinc) to area TID and PRN Scrotum- Cleanse, pat dry and apply triple cream TID and PRN. R ischial tuberosity- Cleanse area, pat dry, apply triple cream TID and PRN. Sacrum- Cleanse with ns, pat dry, apply algisite and cover with mepilex. Change daily and PRN. For smaller slough area adjacent to larger area, cleanse with ns, apt dry, apply Santyl, cover with mepilex- follow surgical recommendations after consult. Left posterior thigh- CLeanse with ns, pat dry, apply santyl. Cover with mepilex. Follow Surgical recommendations after consult. General MASD on posterior buttocks/ thighs- cleanse, pat dry, apply triple cream TID and PRN. Stand Alone Forms: Nursing Discharge Form Referrals: Yue Solis [ NON-[facility] STAFF PHYSICIAN] - (Please call to make a follow up appoinment.) Activity:: Activity as Tolerated Equipment/Supplies:: No Equipment Needed Diet:: Diabetic Diet Discharge Orders Discharge Orders: Discharge Order (Routine); Ordered 11/18/20 Ordered By: Swapnil Bender DS: Summary Time Spent with Patient providing and/or coordinating discharge services: Greater than 30 minutes Status at Discharge Functional status at discharge: bed bound Overall status at discharge: patient is progressing back to baseline Mental Status: mental status grossly normal Speech and Movement: speech clear Mood: congruent mood Affect: normal affect Exam Psych Mental Status: mental status grossly normal Speech and Movement: speech clear Mood: congruent mood Affect: normal affect DS: Data Vitals/I&O Vitals and I&O: Vital Signs Temperature 36.5 C 11/18/20 05:01 Temperature Source Temporal Artery Scan 11/18/20 05:01 Pulse 85 11/18/20 05:01 Pulse 78 11/16/20 18:00 Respiratory Rate 16 11/18/20 05:01 Respiratory Effort 11/18/20 02:49 Respiratory Depth Normal 11/18/20 02:49 Respiratory Pattern Normal 11/18/20 02:49 Blood Pressure 114/76 11/18/20 05:01 Blood Pressure Mean 78 11/16/20 16:42 Blood Pressure Position Supine 11/16/20 04:15 Pulse Oximetry 96 11/18/20 05:01 Oxygen Delivery Method Room Air 11/18/20 05:01 Oxygen Flow Rate 0 11/18/20 05:01 Pain Level 0 11/18/20 00:00 Intake & Output 11/17/20 11/17/20 11/18/20 11:59 23:59 11:59 Intake Total 50 / 1590 1540 / 1590 240 / 240 Output Total 1750 / 2950 1200 / 2950 500 / 500 Balance -1700 / -1360 340 / -1360 -260 / -260 Weight 69.8 kg 76.1 kg Intake: IV 50 / 1050 1000 / 1050 Oral 540 / 540 240 / 240 Output: Urine 1550 / 2750 1200 / 2750 500 / 500 Stool 200 / 200 Other: Urine Color Yellow Pale Pale Yellow Yellow Urine Appearance Clear Clear Clear Stool Characteristics Formed Formed [facility] Medical History Anemia Chronic rhinitis Diabetes mellitus type 2, controlled, without complications GERD (gastroesophageal reflux disease) Insomnia FDC current use of opiate analgesic Neurogenic bladder Obesity Pressure ulcer of sacrum Quadriplegia and quadriparesis Restless legs Syringomyelia and syringobulbia Surgical History History of drainage of abscess (~10/18/19) Necrotic decubitus ulcer of sacrum stage IV, necrotic decubitus ulcer of left posterior thigh/gluteal crease (ischial) stage IV S/P colostomy (~10/04/19) Stage IV sacral decubitus ulcers, quadriplegia Status post debridement (~08/27/20) Bilateral ingrown toenails, chronic decubitus pressure ischial and sacral ulcer stage III, crease stage IV, necrotic decubitus ulcer right posterior thigh/gluteal crease stage IV Status post debridement (~10/11/19) Necrotic decubitus ulcer of sacrum stage IV, necrotic decubitus ulcer of left posterior thigh/gluteal crease-stage IV, necrotic decubitus ulcer right posterior thigh/gluteal crease-stage IV Social History Smoking risk assessment performed?: No
[2020-11-18 11:21] VITALS: BP 94/59; PULSE 65; RESP 16; TEMP 35.1; O2SAT 96
[2020-11-18] MEDS: Nystatin POWDER 60 GM JAR TP (11:31)
--- NOTE | 2020-11-18 13:44 | CMDISCH_ITS ---
- If Service Date Differs Date of service: 11/18/20 Time of Service: 13:45 LACE Index Scoring Tool - Questions: Length of Stay (in days): 3 Acuity (Admit via E.D.?): No Comorbidities: Diabetes w/o Complication E.D. Visits: 1 - Answers: Total Score: 5 Risk of Readmission: Low Risk Care Management Discharge Reason for Hospitalization: Hyperosmolar Nonketotic Hyperglycemia Discharge Plan: Jack will be discharged home with a resumption of [facility] eds and home health services through [facility]. he will transport via ambulance coordinated by . His brother Harvey who will be his new caregiver, will be there to meet him as well as his current paid caregiver Meri. Patient/Family Education Needs: Review of discharge instructions and plan to follow up with community providers. ask me three.
--- NOTE | 2020-11-25 10:34 | PDOC.CMPRO ---
Care Management Progress Note Caregiver Meri called and reported prescription for ointment for wound care was not ordered as expected. CM reviewed chart, and encouraged Meri to follow up with Jose's PCP to order ointment.
== END 2020-11-18 13:39 | disposition home health service (06) | DRG 637 ==
LOC: ICU 11-16 15:27 → MS 11-16 20:53 → ICU 11-17 10:59
PROVIDERS: Family Medicine; Admitting Provider Internal Medicine; Visit Provider Internal Medicine
DX: E11.00 Type 2 diabetes mellitus with hyperosmolarity without nonketotic hyperglycemic-hyperosmolar coma (NKHHC) (principal); L89.224 Pressure ulcer of left hip, stage 4; L89.214 Pressure ulcer of right hip, stage 4; G82.50 Quadriplegia, unspecified; L89.154 Pressure ulcer of sacral region, stage 4; N39.0 Urinary tract infection, site not specified; G95.0 Syringomyelia and syringobulbia; Z93.3 Colostomy status; D64.9 Anemia, unspecified; G25.81 Restless legs syndrome; G47.00 Insomnia, unspecified; K21.9 Gastro-esophageal reflux disease without esophagitis; N31.9 Neuromuscular dysfunction of bladder, unspecified; J31.0 Chronic rhinitis; E66.9 Obesity, unspecified; L89.629 Pressure ulcer of left heel, unspecified stage; L89.519 Pressure ulcer of right ankle, unspecified stage; L89.899 Pressure ulcer of other site, unspecified stage; I95.9 Hypotension, unspecified; Z79.891 Long term (current) use of opiate analgesic; Z66 Do not resuscitate
CPT/HCPCS: 36415; 80048; 80053; 82805; 84145; 85027; 86850; 86900; 86901; 86920; 87081; 87635; J1650; 81003; 81015; 82607; 82746; 83036; 83540; 83550; 83605; 83735; 84443; 85025; 86140; 87086; 99222; 99233; 99239; J0696; P9016